=== PATIENT | female | born 1950 | race Caucasian/White ===

== ENCOUNTER 2018-09-30 12:43 | Outpatient (CLI) | payer MEDICARE, OTHER ==
--- NOTE | 2018-09-30 17:40 | MRI ---
MRI OF THE RIGHT ELBOW WITH AND WITHOUT IV CONTRAST: Date: 09/30/18 PROVIDED CLINICAL HISTORY: Soft tissue mass. FINDINGS: There is a circumscribed focus of mass-like signal alteration within the anterior aspects of the holli ps muscle approximately 3.8 x 2.0 cm in greatest transverse dimensions, and measuring approximately 6 .8 cm in craniocaudal dimension. This demonstrates fat signal intensity on all sequences. There is no mural nodularity or thickened internal septations evident. Regional marrow and muscular signal appea r otherwise normal. There is partial thickness undersurface tearing involving the common extensor tendon origin. There is patchy signal alteration involving common flexor tendon origin likely reflecting tendinitis. The bic eps, brachialis, and triceps insertions appear normal. The courses of the regional major neurovascular structures appear unremarkable. There is a physiologic amount of fluid within the elbow joint. The medial and lateral elbow ligaments are not optimally evaluated on this protocol. IMPRESSION: Findings compatible with intramuscular lipomatous lesion involving the biceps muscle distally without aggressive features. POS: OFF
== END 2018-09-30 12:44 | disposition home or self-care (01) ==
LOC: SCSMRI 12:43
PROVIDERS: ATTEND Family Medicine
DX: R22.31 Localized swelling, mass and lump, right upper limb (principal); Z85.89 Personal history of malignant neoplasm of other organs and systems
CPT/HCPCS: 82565

== ENCOUNTER 2023-08-26 08:28 | Outpatient (CLI) | payer MEDICARE, OTHER ==
[2023-08-26] MEDS ORDERED: [UNRECOGNIZED DRUG - OTHER] ONE (08:45)
== END 2023-08-26 08:29 | disposition home or self-care (01) ==
LOC: RAD 08:28
PROVIDERS: ATTEND Physician Assistant Medical
DX: K55.9 Vascular disorder of intestine, unspecified (principal); R93.3 Abnormal findings on diagnostic imaging of other parts of digestive tract; K57.30 Diverticulosis of large intestine without perforation or abscess without bleeding
CPT/HCPCS: 74280

== ENCOUNTER 2024-03-10 19:51 | Emergency (ER) | payer MEDICARE, OTHER ==
[2024-03-10 20:21] LABS: #Basophils 0.06 10x3/uL (0.0-0.2); %Basophils 0.4 % (0.0-1.0); %Eosinophils 0.8 % (0.0-10.0); %Lymphocytes 14.2 % (21.0-51.0); %Monocytes 6.3 % (0.0-10.0); %Neutrophils 77.9 % (42.0-75.0); Hematocrit 40.9 % (36.0-47.0); Hemoglobin 13.5 g/dL (12.0-16.0); Mean Corpuscular Hemoglobin 29.3 pg (27.0-31.0); Mean Corpuscular Volume 88.9 fL (78.0-98.0); Mean Platelet Volume 10.3 fL (7.4-10.4); Platelet Count 405 10x3/uL (130-400); RBC Distribution Width 14.2 % (11.5-14.5)
[2024-03-10 20:56] LABS: ALT (SGPT) 10 U/L (8-55); AST (SGOT) 18 U/L (5-34); Albumin 3.7 g/dL (3.4-4.8); Alkaline Phosphatase 97 U/L (40-110); Anion Gap 18 mmol/L (10-20); BUN (Urea Nitrogen) 23 mg/dL (9.8-20.1); Bilirubin, Total 0.4 mg/dL (0.2-1.2); Calc. Creatinine Clearance 0 mL/min (70-130); Calcium 9.1 mg/dL (7.8-10.44); Carbon Dioxide 20 mmol/L (23-31); Chloride 107 mmol/L (98-107); Estimated GFR 72; Globulin 3.7 g/dL (2.4-3.5); Glucose 127 mg/dL (83-110); Lipase 30 U/L (8-78); Potassium 4.2 mmol/L (3.5-5.1); Protein, Total 7.4 g/dL (5.8-8.1); Sodium 141 mmol/L (136-145)
[2024-03-10 22:37] LABS: Bacteria/HPF None Seen HPF (None Seen); Bilirubin Negative (Negative); Blood, Urine Negative (Negative); CAUTI Indications for Culture Pelvic or flank pain; Clarity Turbid (Clear); Glucose, Urine (Dipstick) Normal (Negative); Ketone, Urine Trace mg/dL (Negative); Leukocyte 75 Leu/uL (Negative); Nitrite Negative (Negative); Protein, Urine (Dipstick) 70 mg/dL (Neg-Trace); RBC/HPF 0-3 HPF (0-3); Squamous Epithelial 0-3 HPF (0-3); pH, Urine 5.5 (5.0-9.0)
[2024-03-10 22:38] LABS: Urine Culture Reflex No No
[2024-03-11 00:29] LABS: Lactic Acid 1.06 mmol/L (0.5-2.2)
== END 2024-03-11 00:15 | disposition home or self-care (01) ==
LOC: ERS 19:51
DX: R10.9 Unspecified abdominal pain (principal); R19.7 Diarrhea, unspecified; E11.9 Type 2 diabetes mellitus without complications; I10 Essential (primary) hypertension; Z55.6 Problems related to health literacy; Z79.899 Other long term (current) drug therapy; Z79.82 Long term (current) use of aspirin
CPT/HCPCS: 36415; 71045; 80053; 81001; 83605; 83690; 84484; 85025; 93005; 94760